=== PATIENT | female | born 1990 | race Caucasian/White ===

== ENCOUNTER 2019-03-24 19:43 | Emergency (ER) | payer BC, MEDICAID ==
--- NOTE | 2019-03-24 20:28 | Emergency Department Record ---
History of Present Illness - General Stated complaint: DISLOCATED JAW Time Seen by Provider: 03/24/19 20:17 Source: Patient Mode of Arrival: Ambulatory Limitations: No limitations - History of Present Illness Initial comments: 28 yo female presents to ED for evaluation of right sided dental pain and limited ROM of the jaw. Patient reports "I think my jaw dislocated last night" . Patient denies injury, opening of the mouth that resulted in dislocation, or injury that she is aware of. Patient denies health problems at her baseline, reports that she is 11 weeks gestation. MD complaint: Other (Mandible pain) Onset/Timin -: Hour(s) Severity: Moderate Quality: Aching Consistency: Constant Improves with: None Worsens with: None - Related Data Previous Rx's Medication Instructions Recorded Cephalexin [Keflex] 500 mg PO QID #27 cap 03/24/19 Allergies Allergy/AdvReac Type Severity Reaction Status Date / Time No Known Drug Allergies Allergy Verified 03/24/19 20:54 Review of Systems Constitutional: Denies: Chills, Fever, Malaise, Night sweats Eyes: Denies: Eye discharge, Eye pain ENT: Reports: Other (Mandible pain). Denies: Congestion, Ear pain, Epistaxis, Throat pain Respiratory: Denies: Cough, Dyspnea Cardiovascular: Denies: Chest pain, Dyspnea on exertion Endocrine: Denies: Fatigue, Heat or cold intolerance Gastrointestinal: Denies: Abdominal pain, Nausea, Vomiting Genitourinary: Denies: Incontinence, Retention Musculoskeletal: Denies: Arthralgia, Back pain Skin: Denies: Bruising, Change in color Neurological: Denies: Abnormal gait, Confusion, Headache, Seizure Psychiatric: Denies: Anxiety Hematological/Lymphatic: Denies: Anemia, Blood Clots Physical Exam - General General Appearance: Alert, Oriented x3, Cooperative, Mild distress Limitations: No limitations - Head Head exam: Atraumatic, Normocephalic, Normal inspection Head exam detail: negative: Abrasion, Contusion, Nguyen's sign, General tenderness, Hematoma, Laceration - Eye Eye exam: Normal appearance. negative: Conjunctival injection, Periorbital swelling, Periorbital tenderness, Scleral icterus - ENT Ear exam: negative: Auricular hematoma, Auricular trauma Nasal Exam: negative: Active bleeding, Discharge, Dried blood, Foreign body Mouth exam: Trismus, Other (Limited ROM of the mandible on examination with mild STS to the right jaw, cannot visualize the posterior pharynx on examination.). negative: Drooling, Laceration, Muffled voice, Tongue elevation Throat exam: Other (Cannot visualize) - Neck Neck exam: Normal inspection. negative: Meningismus, Tenderness - Respiratory Respiratory exam: Normal lung sounds bilaterally. negative: Rales, Respiratory distress, Rhonchi, Stridor - Cardiovascular Cardiovascular Exam: Regular rate, Normal rhythm, Normal heart sounds - GI/Abdominal GI/Abdominal exam: Soft. negative: Rebound, Rigid, Tenderness - Rectal Rectal exam: Deferred - exam: Deferred - Extremities Extremities exam: Normal inspection. negative: Pedal edema, Tenderness - Back Back exam: Denies: CVA tenderness (R), CVA tenderness (L) - Neurological Neurological exam: Alert, Normal gait, Oriented X3 - Psychiatric Psychiatric exam: Normal affect, Normal mood - Skin Skin exam: Abrasion. negative: Normal color Type of lesion: negative: abrasion Course Vital Signs 03/24/19 20:20 Temperature 98.4 F Pulse Rate [ 90 Pulse Ox Probe] Respiratory 20 Rate Blood Pressure 148/91 [Left Arm] Pulse Ox 100 - Reevaluation(s) Reevaluation #1: 03/24/19 21:09 TMJ Bilateral views: No evidence for mandibular dislocation Patient was updated on her result, able to open the mouth much more significantly on re-examination. Dental partial was removed, no evidence for dental infection on examination. Pharynx appears normal without hina-tonsillar/retropharyngeal swelling/abscess. Patient does report pain over the tragus on examination, no significant lymphadenopathy is present. Following discussion with the patient, will initiate treatment with Keflex and Decadron x 1 here in the ED. Patient was instructed to return to the ED for re-evaluation if her symptoms fail to improve in 24-36 hours. 03/24/19 21:12 Disposition Disposition: Discharge Clinical Impression: Mandibular pain Disposition: Home, Self-Care Condition: (2) Stable Instructions: Atypical Facial Pain (ED) Additional Instructions: Return to ED if your symptoms worsen or if you have any concerns. Keflex as directed. Follow-up with your family doctor in 3-5 days as directed. Prescriptions: Cephalexin [Keflex] 500 mg PO QID #27 cap Time of Disposition: 21:13 Quality - Quality Measures Quality Measures: N/A - Blood Pressure Screening Does Patient Have Any of the Following: No Blood Pressure Classification: Hypertensive Reading Systolic Measurement: 148 Diastolic Measurement: 91 Screening for High Blood Pressure: < First Hypertensive BP, F/U Documented > [ G8950] First Hypertensive Follow-up Interventions: Referral to alternative/primary care provider.
[2019-03-24] MEDS ORDERED: DEXAMETHASONE SOD PHOSPHATE 10MG/ML VIAL PO ONE (21:12)
[2019-03-24] MEDS ORDERED: CEPHALEXIN 500 MG CAPSULE PO STA (21:12)
--- NOTE | 2019-03-27 07:49 | RADIOLOGY REPORT ---
DATE: 03/24/2019. EXAM: MULTIPLE VIEWS OF THE BILATERAL TEMPOROMANDIBULAR JOINTS. HISTORY: THE PATIENT HAS RIGHT-SIDED MANDIBULAR PAIN. TECHNIQUE: AP projection of the bilateral temporomandibular joints and open and closed views of the mandible in the region of the temporomandibular joints is provided in the lateral projection. COMPARISON: No comparison studies are available. FINDINGS: AP view of the mandible demonstrates no radiographic evidence of a fracture or dislocation of the mandible. Open and closed views of the bilateral temporomandibular joints demonstrates the mandibular condyle to have normal contour and location. The mandibular condyle remains within the temporomandibular fossa on both the open- and closed- mouth views without evidence of significant anterior dislocation. No obvious erosion of the mandibular head is noted. IMPRESSION: NO RADIOGRAPHIC EVIDENCE OF ACUTE FRACTURE OR DISLOCATION OF THE MANDIBLE. UNREMARKABLE PLAIN FILM RADIOGRAPH OF THE TEMPOROMANDIBULAR JOINTS. Job Number: [id number] MTDD
== END 2019-03-24 21:20 | disposition home or self-care (01) ==
LOC: ER 19:43
DX: R68.84 Jaw pain (principal)
CPT/HCPCS: 99283 ×2; 70330; J1100

== ENCOUNTER 2019-04-24 18:25 | Emergency (ER) | payer BC, MEDICAID ==
[2019-04-24] MEDS ORDERED: 0.9 % SODIUM CHLORIDE 1,000 ML BAG IV ONE (19:18)
[2019-04-24] MEDS ORDERED: PROMETHAZINE HCL 12.5 MG in 0.9 % SODIUM CHLORIDE 100ML 100 ML IVPB ONE (19:20)
--- NOTE | 2019-04-24 19:24 | Emergency Department Record ---
History of Present Illness - General Chief Complaint: Headache Migraine Stated Complaint: NATH/13 WKS PREG Time Seen by Provider: 04/24/19 19:10 Source: Patient Mode of Arrival: Ambulatory Limitations: No limitations - History of Present Illness Initial Comments: pt has had a headache since sat. nath started suddenly but is not the worst nath of her life. it is on the l side of her head. she has n. she is 15wks preg Complaint: Headache Onset/Timin -: Days(s) Onset Description: Sudden Location: Left Severity: Moderate Severity scale (1-10): 10 Quality: Sharp Consistency: Constant Improves With: Cold therapy Worsens With: Light Associated Symptoms: Nausea, Vomiting Treatments Prior to Arrival: Acetaminophen - Related Data Home Medications Medication Instructions Recorded Confirmed Last Taken Pnv No.95/Ferrous Fum/Folic AC 1 each PO DAILY 04/24/19 04/24/19 04/23/19 [ Caplet] Allergies Allergy/AdvReac Type Severity Reaction Status Date / Time No Known Drug Allergies Allergy Verified 03/24/19 20:54 Travel Screening - Travel/Exposure Within Last 30 Days Have you traveled within the last 30 days?: No - Travel Symptoms Symptom Screening: None Review of Systems Reviewed: No additional complaints except as noted below Constitutional: Reports: As per HPI. Denies: Chills, Fever, Malaise, Night sweats, Weakness, Weight change Eyes: Reports: As per HPI. Denies: Eye discharge, Eye pain, Photophobia, Vision change ENT: Reports: As per HPI. Denies: Congestion, Dental pain, Ear pain, Epistaxis, Hearing loss, Throat pain Respiratory: Reports: As per HPI. Denies: Cough, Dyspnea, Hemoptysis, Stridor, Wheezes Cardiovascular: Reports: As per HPI. Denies: Arrhythmia, Chest pain, Dyspnea on exertion, Edema, Murmurs, Orthopnea, Palpitations, Paroxysmal nocturnal dyspnea, Rheumatic Fever, Syncope Endocrine: Reports: As per HPI. Denies: Fatigue, Heat or cold intolerance, Polydipsia, Polyuria Gastrointestinal: Reports: As per HPI. Denies: Abdominal pain, Constipation, Diarrhea, Hematemesis, Hematochezia, Melena, Nausea, Vomiting Genitourinary: Reports: As per HPI. Denies: Abnormal menses, Discharge, Dyspareunia, Dysuria, Frequency, Hematuria, Incontinence, Retention, Urgency Musculoskeletal: Reports: As per HPI. Denies: Arthralgia, Back pain, Gout, Joint swelling, Myalgia, Neck pain Skin: Reports: As per HPI. Denies: Bruising, Change in color, Change in hair/nails, Lesions, Pruritus, Rash Neurological: Reports: As per HPI, Headache. Denies: Abnormal gait, Confusion, Numbness, Paresthesias, Seizure, Tingling, Tremors, Vertigo, Weakness Psychiatric: Reports: As per HPI. Denies: Anxiety, Auditory hallucinations, Depression, Homicidal thoughts, Suicidal thoughts, Visual hallucinations Hematological/Lymphatic: Reports: As per HPI. Denies: Anemia, Blood Clots, Easy bleeding, Easy bruising, Swollen glands Past Medical History - SOCIAL HISTORY Smoking Status: Current every day smoker - RESPIRATORY Hx Respiratory Disorders: No - CARDIOVASCULAR Hx Cardio Disorders: No - NEURO Hx Neuro Disorders: No - GI Hx GI Disorders: No - Hx Genitourinary Disorders: No - ENDOCRINE Hx Endocrine Disorders: No - MUSCULOSKELETAL Hx Musculoskeletal Disorders: No - PSYCH Hx Psych Problems: No - HEMATOLOGY/ONCOLOGY Hx Hematology/Oncology Disorders: No Family Medical History Any Significant Family History?: Yes Family Hx Comment (NOT TO BE USED IN PLACE OF ITEMS BELOW): Mom & sister w/thyroid issues Hx Heart Disease: Father *Heart Comment: enlarged heart Hx HTN: Father, Mother Physical Exam - General General Appearance: Alert, Oriented x3, Cooperative, Mild distress - Head Head exam: Normal inspection - Eye Eye exam: Normal appearance, PERRL, EOMI Pupils: Normal accommodation - ENT ENT exam: Normal exam, Mucous membranes moist, Normal external ear exam, Normal orophraynx, TM's normal bilaterally Ear exam: Normal external inspection. negative: External canal tenderness Nasal Exam: Normal inspection. negative: Discharge, Sinus tenderness Mouth exam: Normal external inspection, Tongue normal Teeth exam: Normal inspection. negative: Dental caries Throat exam: Normal inspection. negative: Tonsillar erythema, Tonsillar exudate - Neck Neck exam: Normal inspection, Full ROM. negative: Tenderness - Respiratory Respiratory exam: Normal lung sounds bilaterally. negative: Respiratory distress - Cardiovascular Cardiovascular Exam: Regular rate, Normal rhythm, Normal heart sounds - GI/Abdominal GI/Abdominal exam: Soft, Normal bowel sounds. negative: Tenderness - Rectal Rectal exam: Deferred - exam: Deferred - Extremities Extremities exam: Normal inspection, Full ROM, Normal capillary refill. negative: Tenderness - Back Back exam: Reports: Normal inspection, Full ROM. Denies: Muscle spasm, Rash noted, Tenderness - Neurological Neurological exam: Alert, CN II-XII intact, Normal gait, Oriented X3 - Psychiatric Psychiatric exam: Normal affect, Normal mood - Skin Skin exam: Dry, Intact, Normal color, Warm Course Vital Signs 04/24/19 19:02 Temperature 98.7 F Pulse Rate 106 H Respiratory 20 Rate Blood Pressure 140/81 Pulse Ox 100 - Reevaluation(s) Reevaluation #1: 04/24/19 20:52 pt feels much better. nath is /. Medical Decision Making - Lab Data Result diagrams: 04/24/19 19:45 04/24/19 19:45 Disposition Disposition: Discharge Clinical Impression: Dehydration during Headache Qualifiers: Headache type: unspecified Headache chronicity pattern: acute headache Intractability: not intractable Qualified Code(s): R51 - Headache Disposition: Home, Self-Care Condition: (1) Good Instructions: Acute Headache (ED) Additional Instructions: follow up with webbing inspector. return sooner if worse. push fluids Forms: Patient Portal Access Quality - Quality Measures Quality Measures: N/A - Blood Pressure Screening Does Patient Have Any of the Following: No Blood Pressure Classification: Pre-Hypertensive BP Reading Systolic Measurement: 140 Diastolic Measurement: 81 Screening for High Blood Pressure: < Pre-Hypertensive BP, F/U Documented > [G8950] Pre-Hypertensive Follow-up Interventions: Follow-up with rescreen every year.
[2019-04-24 19:40] LABS: URINE APPEARANCE SL CLOUDY; URINE BILIRUBIN SMALL (NEGATIVE); URINE BLOOD NEGATIVE (NEGATIVE); URINE COLOR YELLOW; URINE GLUCOSE (UA) NEGATIVE (NEGATIVE); URINE KETONE 40 mg/dL (NEGATIVE); URINE LEUKOCYTE ESTERASE NEGATIVE (NEGATIVE); URINE NITRITE NEGATIVE (NEGATIVE); URINE PROTEIN TRACE (NEGATIVE)
[2019-04-24 19:58] LABS: ABSOLUTE NEUTROPHIL COUNT 5.05; BASO % 0.2 % (0-6); EOS % 0.9 % (0-6); GRAN % 77.3 % (47-80); HEMATOCRIT 34.8 % (35.0-47.0); HEMOGLOBIN 11.5 gm/dl (11.6-16.0); LYMPH % 15.2 % (16-45); MEAN CELL VOLUME 91.8 fl (81-97); MEAN CORPUSCULAR HEMOGLOBIN 30.3 pg (27-33); MEAN PLATELET VOLUME 9.4 fl (7.4-10.4); MONO % 6.4 % (0-9); PLATELET COUNT 257 K/uL (130-400); RED BLOOD COUNT 3.79 M/uL (3.80-5.40); RED CELL DISTRIBUTION WIDTH 12.2 % (11.5-14.5); WHITE BLOOD COUNT W/O DIFF 6.5 K/uL (4.2-12.2)
[2019-04-24 20:08] LABS: BLOOD UREA NITROGEN 5 mg/dL (6-20); CREATININE 0.4 mg/dL (0.5-0.9); EST GLOMERULAR FILTRATION RATE > 60 mL/min
[2019-04-24 20:10] LABS: TOTAL PROTEIN 6.3 g/dL (6.6-8.7)
[2019-04-24 20:11] LABS: GLUCOSE,RANDOM 93 mg/dL (74-109)
[2019-04-24 20:14] LABS: ALBUMIN 3.8 g/dL (4.0-5.0); ALKALINE PHOSPHATASE 82 U/L (35-104); ALT/SGPT 7 U/L (<33); AST/SGOT 11 U/L (10.0-35.0)
[2019-04-24 20:15] LABS: BILIRUBIN,DIRECT < 0.2 mg/dL (0-0.3)
== END 2019-04-24 21:01 | disposition home or self-care (01) ==
LOC: ER 18:25
DX: O21.1 Hyperemesis gravidarum with metabolic disturbance (principal); O99.332 Smoking (tobacco) complicating pregnancy, second trimester; R51 Headache; F17.210 Nicotine dependence, cigarettes, uncomplicated; Z3A.15 15 weeks gestation of pregnancy
CPT/HCPCS: 80048; 80076; 81003; 85025; 96361; 96365; 99284; J2550; J7030

== ENCOUNTER 2019-06-26 16:22 | Emergency (ER) | payer BC, MEDICAID ==
--- NOTE | 2019-06-26 16:37 | Emergency Department Record ---
History of Present Illness - General Chief Complaint: Cough Stated Complaint: COUGH,SHORT OF BREATH Time Seen by Provider: 06/26/19 16:34 Source: Patient Mode of Arrival: Ambulatory Limitations: No limitations - History of Present Illness Initial Comments: The patient is here due to a 5 day hx of worsening cough and congestion. She does have some mild rib pain when coughing hard. She has been taking OTC medicines without relief. The patient denies any sputum production, fever, chills, hemoptysis or chest pain. The patient is 25 weeks . MD Complaint: Cough, Nasal congestion, Rhinorrhea Onset/Timin -: Days(s) Consistency: Intermittent - Related Data Home Medications Medication Instructions Recorded Confirmed Last Taken Aspirin [Aspir-Low] 81 mg PO BID 06/26/19 06/26/19 06/26/19 Previous Rx's Medication Instructions Recorded Albuterol Sulfate [Proair Hfa] 2 puff IH QID PRN #1 inhaler 06/26/19 Azithromycin [Zithromax] 250 mg PO ASDIR #6 tab 06/26/19 Prednisone [Prednisone 20Mg] 40 mg PO DAILY #10 tab 06/26/19 Allergies Allergy/AdvReac Type Severity Reaction Status Date / Time No Known Drug Allergies Allergy Verified 06/26/19 16:26 Travel Screening - Travel/Exposure Within Last 30 Days Have you traveled within the last 30 days?: No - Travel/Exposure Within Last Year Have you traveled outside the [place] in the last year?: No - Additonal Travel Details Have you been exposed to anyone with a communicable illness?: No - Travel Symptoms Symptom Screening: None Review of Systems Constitutional: Reports: Malaise. Denies: Chills, Fever Eyes: Denies: Eye discharge ENT: Reports: Congestion Respiratory: Reports: Cough. Denies: Dyspnea, Hemoptysis Cardiovascular: Denies: Chest pain Past Medical History - SOCIAL HISTORY Smoking Status: Current every day smoker Alcohol Use: None Drug Use: None - RESPIRATORY Hx Respiratory Disorders: No - CARDIOVASCULAR Hx Cardio Disorders: No - NEURO Hx Neuro Disorders: No - GI Hx GI Disorders: No - Hx Genitourinary Disorders: No - ENDOCRINE Hx Endocrine Disorders: No - MUSCULOSKELETAL Hx Musculoskeletal Disorders: No - PSYCH Hx Psych Problems: No - HEMATOLOGY/ONCOLOGY Hx Hematology/Oncology Disorders: No Family Medical History Any Significant Family History?: Yes Family Hx Comment (NOT TO BE USED IN PLACE OF ITEMS BELOW): Mom & sister w/thyroid issues Hx Heart Disease: Father *Heart Comment: enlarged heart Hx HTN: Father, Mother Physical Exam - General General Appearance: Alert, Oriented x3, Cooperative, No acute distress - Head Head exam: Atraumatic, Normocephalic, Normal inspection - Eye Eye exam: Normal appearance, PERRL - ENT Throat exam: Normal inspection. negative: Tonsillar erythema, Tonsillar exudate - Neck Neck exam: Normal inspection, Full ROM. negative: Tenderness - Respiratory Respiratory exam: Normal lung sounds bilaterally. negative: Accessory muscle use, Chest wall tenderness, Decreased breath sounds, Rales, Respiratory distress, Rhonchi, Stridor, Wheezes - Cardiovascular Cardiovascular Exam: Regular rate, Normal rhythm, Normal heart sounds. negative: Diastolic murmur, Systolic murmur - GI/Abdominal GI/Abdominal exam: Soft, Normal bowel sounds, Other (The patient is obviously .). negative: Rebound, Rigid, Tenderness - Extremities Extremities exam: Normal inspection, Full ROM, Normal capillary refill. negative: Tenderness - Back Back exam: Reports: Normal inspection - Neurological Neurological exam: Alert. negative: Motor sensory deficit Course Vital Signs 06/26/19 16:27 Temperature 98.3 F Pulse Rate 91 H Respiratory 20 Rate Blood Pressure 128/81 Pulse Ox 99 - Reevaluation(s) Reevaluation #1: The patient is doing very well after the treatment and xray. She denies any Cp or SOB at this time. She is speaking in full sentences with no difficulty or coughing. On exam her lungs are clear with no wheezing or rhonchi. I did discuss the neg xray with the patient and did encourage her to keep her appointment with her OB doctor for tomorrow. At this time the patient has a normal HR, RR, and O2 sat of 98% on RA. I will be starting the patient on a a Zpak and Inhaller. She also will receive a script for Prednisone but is going to make sure her OB doctor is OK with her taking it tomorrow prior to starting it. 06/26/19 17:26 Medical Decision Making - Data Complexity MDM Data: X-Ray Ordered and/or Reviewed - Radiology Data Radiology results: Report reviewed (CXR: Neg per Rad.) Disposition Disposition: Discharge Clinical Impression: URI with cough and congestion Disposition: Home, Self-Care Condition: (2) Stable Instructions: Upper Respiratory Infection (ED) Additional Instructions: Please take the Zpak and Albuterol as directed and please start the Prednisone tomorrow ONLY if given the OK by your OB doctor. Please return to the ER for any worsening cough, SOB, DARRYL, fever, or pain. Prescriptions: Prednisone [Prednisone 20Mg] 40 mg PO DAILY #10 tab Albuterol Sulfate [Proair Hfa] 2 puff IH QID PRN #1 inhaler PRN Reason: Cough And Difficulty Breathing Azithromycin [Zithromax] 250 mg PO ASDIR #6 tab Forms: Patient Portal Access Time of Disposition: 17:32 Quality - Quality Measures Quality Measures: N/A - Blood Pressure Screening View Details: Yes Does Patient Have Any of the Following: No Blood Pressure Classification: Pre-Hypertensive BP Reading Systolic Measurement: 128 Diastolic Measurement: 81 Screening for High Blood Pressure: < Pre-Hypertensive BP, F/U Documented > [G8950] Pre-Hypertensive Follow-up Interventions: Referral to alternative/primary care provider.
[2019-06-26] MEDS ORDERED: ALBUTEROL SULFATE (0.083%) 2.5 MG/3 ML NEB INH ONE (17:07)
--- NOTE | 2019-06-27 13:33 | RADIOLOGY REPORT ---
EXAM: CHEST, TWO VIEWS HISTORY: COUGH, SHORT OF BREATH. TECHNIQUE: Two views of the chest were obtained. FINDINGS: The lungs are clear. The cardiac size and pulmonary vascularity are normal. IMPRESSION: NORMAL CHEST EXAMINATION. JOB NUMBER: [id number] MTDD
== END 2019-06-26 17:37 | disposition home or self-care (01) ==
LOC: ER 16:22
DX: J06.9 Acute upper respiratory infection, unspecified (principal); R05 Cough; R07.81 Pleurodynia; F17.210 Nicotine dependence, cigarettes, uncomplicated; Z33.1 Pregnant state, incidental
CPT/HCPCS: 71046; 94640; 99283; 99284; J7613